=== PATIENT | male | born 1970 | race Caucasian/White ===

== ENCOUNTER 2016-10-28 19:50 | Emergency (ER) | payer SELFPAY ==
[~2016-10-28] VITALS: Ht 172.7 cm; Wt 78.0 kg
[~2016-10-28 19:50] MED LIST: BEN50; CIPR500T4 PO; CYCL-319 PO; HYDR-906 PO; IBUP-1542 PO; LORA5SOL; METR500T PO
[2016-10-28 20:37] VITALS: Ht 172.7 cm; Wt 78.0 kg
[2016-10-28] MEDS ORDERED: KETOROLAC 60 MG INJ IM STA (22:27)
--- NOTE | 2016-10-28 23:03 | RADRPT ---
PROCEDURE: XR Chest. CLINICAL INDICATION: Chest pain TECHNIQUE: Single frontal view of the chest was obtained COMPARISON: None FINDINGS: The heart and mediastinum are within normal limits. The lungs are clear. There is no pleural effusion or pneumothorax. IMPRESSION: No acute disease. RPTAT: [facility] Physician Phillip Date Time Electronically viewed and signed by Meek Xiong Physician on 10/28/2016 23:03 RS/
[2016-10-28] MEDS ORDERED: IBUP800T25 PO (23:51)
[2016-10-28] MEDS ORDERED: HYDR-906 PO (23:51)
--- NOTE | 2016-10-28 23:55 | ERD ---
ER Documentation Chief Complaint Date/Time DATE: 10/28/16 TIME: 23:52 Chief Complaint Chest wall pain HPI This a 46-year-old male complains of 2 days of the left costo sternal pinpoint sharp stabbing pain. He says the pain is worse with movement of the trunk/ moving around. No shortness of breath no radiation of pain no nausea vomiting diarrhea no cough no trauma no pain in the shoulders jaw or elbow no diaphoresis. ROS All systems reviewed and are negative except as per history of present illness. Medications Home Meds Active Scripts Hydrocodone/Acetaminophen ([place] 5-325 Tablet) 1 Each Tablet, 1 TAB PO Q6H Y for PAIN, #20 TAB Prov:PHIL PALAFOX DO 10/28/16 Ibuprofen* (Motrin*) 800 Mg Tab, 800 MG PO Q6H Y for PAIN AND OR ELEVATED TEMP, #30 TAB Prov:PHIL PALAFOX DO 10/28/16 Discontinued Reported Medications Loratadine* (Claritin*) 1 Mg/Ml Syrup 12/22/10 Diphenhydramine Hcl* (Benadryl*) 50 Mg Cap 12/22/10 Discontinued Scripts Ciprofloxacin Hcl* (Ciprofloxacin Hcl*) 500 Mg Tablet, 500 MG PO BID for 10 Days , TAB Prov:EZE STEWART NP 06/29/16 Metronidazole* (Flagyl*) 500 Mg Tablet, 500 MG PO TID for 10 Days, TAB Prov:EZE STEWART NP 06/29/16 Ibuprofen* (Motrin*) 600 Mg Tab, 600 MG PO Q6H Y for PAIN AND OR ELEVATED TEMP, #30 TAB Prov:EZE STEWART NP 06/29/16 Cyclobenzaprine Hcl* (Cyclobenzaprine Hcl*) 10 Mg Tablet, 10 MG PO TID, #15 TAB Prov:EZE STEWART NP 06/29/16 Hydrocodone/Acetaminophen ([place] 5-325 Tablet) 1 Each Tablet, 1 TAB PO Q6H Y for PAIN, #20 TAB Prov:EZE STEWART NP 06/29/16 Allergies Allergies: Coded Allergies: Penicillins (Verified Allergy, Mild, RASH, 10/28/16) PMhx/Soc Medical and Surgical Hx: pt denies Medical Hx, pt denies Surgical Hx History of Surgery: No Anesthesia Reaction: No Hx Neurological Disorder: No Hx Respiratory Disorders: No Hx Cardiac Disorders: No Hx Psychiatric Problems: No Hx Miscellaneous Medical Probl: No Hx Alcohol Use: Yes (OCCASSIONAL) Hx Substance Use: No Hx Tobacco Use: No Smoking Status: Never smoker FmHx Family History: No coronary disease Physical Exam Vitals Vital Signs Date Time Temp Pulse Resp B/P Pulse Ox O2 Delivery O2 Flow Rate FiO2 10/28/16 23:00 98.4 65 18 121/87 100 Room Air 10/28/16 20:37 98.4 74 18 138/87 98 Physical Exam Const: Well-developed, well-nourished Head: Atraumatic, normocephalic Eyes: Normal Conjunctiva, PERRLA, EOMI, normal sclera, no nystagmus ENT: Normal External Ears, Nose and Mouth, moist mucus membranes. Neck: Full range of motion. No meningismus, no lymphadenopathy. Resp: Clear to auscultation bilaterally, no wheezing, rhonchi, rales there is 100% reproducible severe pinpoint pain to rib #4 on the left cost to sternal margin specifically tender on the cartilage itself, pain is also worse with movement of trunk Cardio: Regular rate and rhythm, no murmurs, S1 S2 present Abd: Soft, non tender x 4, non distended. Normal bowel sounds, no guarding or rebound, no pulsitile abdominal masses or bruits Skin: No petechiae or rashes, no ecchymosis , no maculopapular rash Back: No midline or flank tenderness Ext: No cyanosis, or edema, FROM x 4, normal inspection, neurovascularly intact x 4 Neur: Awake and alert, STR 5/5 x 4, sensation intact x 4, no focal findings, cerebellum intact Psych: Normal Mood and Affect Results 24 hrs Laboratory Tests Test 10/28/16 22:20 Troponin I < 0.012ng/ml Current Medications Medications (Trade) Dose Ordered Sig/[place] Route PRN Reason Start Time Stop Time Status Last Admin Dose Admin Ketorolac Tromethamine (Toradol) 60 mg ONCE STAT IM 10/28/16 22:27 10/28/16 22:30 DC 10/28/16 22:37 Procedures/MDM PROCEDURE: XR Chest. CLINICAL INDICATION: Chest pain TECHNIQUE: Single frontal view of the chest was obtained COMPARISON: None FINDINGS: The heart and mediastinum are within normal limits. The lungs are clear. There is no pleural effusion or pneumothorax. IMPRESSION: No acute disease. RPTAT: [facility] Physician Phillip Date Time Electronically viewed and signed by Meek Xiong Physician on 10/28/2016 23:03 RS/ CC: PHIL PALAFOX DO EKG: Rate/Rhythm: Normal Sinus Rhythm,NL intervals QRS, ST, QT: NORMAL DC, QRS, QT] Impression: NORMAL EKG Troponin is negative. I feels patient's pain is clearly musculoskeletal in origin not cardiac. Pain is better after Toradol. We will discharge with Motrin and [place] Departure Diagnosis: Primary Impression: Costochondritis Condition: Stable Patient Instructions: Costochondritis Referrals: NO PRIMARY,CARE PHYSICIAN (PCP) PHIL PALAFOX DO Oct 28, 2016 23:55
[2016-10-29 00:14] VITALS: BP 122/78; PULSE 62; RESP 18; TEMP 98.4
== END 2016-10-29 00:15 | disposition home or self-care (01) ==
LOC: E/R 19:50
DX: M94.0 Chondrocostal junction syndrome [Tietze] (principal)
CPT/HCPCS: 36415; 71010; 84484; 93005; 96372; 99285; J1885